=== PATIENT | female | born 1955 | race Caucasian/White ===

== ENCOUNTER → 2016-09-09 | Outpatient (CLI) | payer BC ==
[~2016-09-09] MED LIST: ACTONEL150 MG PO; CALCIUM 600+D1 EACH PO; LOSARTAN PO; MAGNESIUM500 MG PO; VITAMIN D-32000 UNIT PO
== END | disposition home or self-care (01) ==
LOC: CARD 09-05 09:00
DX: R94.31 Abnormal electrocardiogram [ECG] [EKG] (principal); R07.2 Precordial pain

== ENCOUNTER 2018-07-16 04:57 | Emergency (ER) | payer BC ==
[~2018-07-16] VITALS: Ht 157.4 cm; Wt 66.7 kg
[2018-07-16] MEDS ORDERED: LOSARTAN POTASS25 M1 PO (05:48)
[2018-07-16] MEDS ORDERED: ZITHROMAX250 MG PO (06:19)
[2018-07-16] MEDS ORDERED: PREDNISONE20 M1 PO (06:19)
[2018-07-16] MEDS ORDERED: NORCO 5-325 TA1 EACH PO (06:19)
== END 2018-07-16 06:34 | disposition home or self-care (01) ==
LOC: ED 04:57
DX: R07.81 Pleurodynia (principal); J21.9 Acute bronchiolitis, unspecified; Z98.890 Other specified postprocedural states; Z79.899 Other long term (current) drug therapy

== ENCOUNTER 2018-11-15 22:07 | Emergency (ER) | payer BC | END 2018-11-15 22:56 | disposition home or self-care (01) | LOC: ED 22:07 | DX: M10.072 Idiopathic gout, left ankle and foot (principal); Z79.899 Other long term (current) drug therapy; W18.09XA Striking against other object with subsequent fall, initial encounter; Y93.89 Activity, other specified; Y92.098 Other place in other non-institutional residence as the place of occurrence of the external cause; Y99.8 Other external cause status ==

== ENCOUNTER → 2018-11-15 | Outpatient (CLI) | payer BC ==
[~2018-11-15] MED LIST changes: +LOSARTAN POTASS25 M1 PO; +NORCO 5-325 TA1 EACH PO; +PREDNISONE20 M1 PO; +ZITHROMAX250 MG PO
== END | disposition home or self-care (01) ==
LOC: RAD 21:46
DX: S99.922A Unspecified injury of left foot, initial encounter (principal); M19.072 Primary osteoarthritis, left ankle and foot; X58.XXXA Exposure to other specified factors, initial encounter; Y93.89 Activity, other specified; Y92.89 Other specified places as the place of occurrence of the external cause; Y99.8 Other external cause status